=== PATIENT | female | born 1995 | race Asian ===

== ENCOUNTER 2017-10-14 15:32 | Emergency (ER) | payer OTHER ==
[2017-10-14 15:37] VITALS: BP 119/61
--- NOTE | 2017-10-14 16:34 | ER Document Report ---
HPI - HPI Pain Level: 0 Notes: Patient is a 21-year-old female with a history of eczema who presents ED complaining of an intermittent rash on her anterior forearms bilaterally that exacerbates when she is at work cutting on newer vegetables that they got in. Patient states that when she leaves work her symptoms improve. Patient has an occasional burning/itch to the area that is not worse at nighttime. Patient has not tried any [id number] meds for symptoms. Patient does wear gloves but they do not extend proximally from the wrist where she is coming into contact with those chemicals. Patient otherwise has not had any other recent illness. She denies any drug allergies. Denies any new foods, medicines, travel, or insect bites otherwise. Denies any headache, fever, neck pain, URI, sore throat, chest pain, palpitations, syncope, cough, shortness of breath, wheeze, dyspnea, abdominal pain, nausea/vomiting/diarrhea, urinary retention, dysuria, hematuria, numbness/tingling. - ROS Systems Reviewed and Negative: Yes All other systems reviewed and negative - REPRODUCTIVE Reproductive: DENIES: : Past Medical History - Social History Smoking Status: Never Smoker Family History: Reviewed & Not Pertinent Pulmonary Medical History: Reports: Hx Asthma Past Surgical History: Reports: Hx Tonsillectomy Vertical Provider Document - CONSTITUTIONAL Agree With Documented VS: Yes Notes: PHYSICAL EXAMINATION: GENERAL: Well-appearing, well-nourished and in no acute distress. EYES: sclera anicteric, conjunctiva are normal. ENT: ENares patent and without discharge. oropharynx clear without exudates. No tonsilar hypertrophy or erythema. Moist mucous membranes. NECK: Normal range of motion, supple without lymphadenopathy LUNGS: Breath sounds clear to auscultation bilaterally and equal. No wheezes rales or rhonchi. HEART: Regular rate and rhythm without murmurs, rubs, gallops. Musculoskeletal: UE's b/l: FROM to passive/active. Strength 5+/5. No deficits. N/V intact distal b/l. Extremities: No cyanosis, clubbing, or edema b/l. Peripheral pulses 2+. Capillary refill less than 3 seconds. NEUROLOGICAL: Normal speech, normal gait. Normal sensory, motor exams PSYCH: Normal mood, normal affect. SKIN: dry scaly maculopapular small areas on the anterior distal forearms. No scabbing, abscess, purulence, or streaks. Non-tender. - INFECTION CONTROL TRAVEL OUTSIDE OF THE [place] IN LAST 30 DAYS: No - RESPIRATORY O2 Sat by Pulse Oximetry: 100 Course - Re-evaluation Re-evalutation: 10/14/17 16:37 Patient is an afebrile, well-hydrated, 21-year-old female who presents the ED with a suspected contact dermatitis. Vitals are stable. PE is otherwise unremarkable. No other labs or imaging warranted at this time. Low suspicion for any necrotizing fasciitis, sepsis, scabies, SJS, or other systemic emergent condition at this time. Patient to monitor symptoms closely and seek medical attention with any acute changes. I will send her home with a prescription for triamcinolone cream to use as directed. Recheck with your PCM in 3-5 days. Consider consult with dermatology. Return to the ED with any worsening/ concerning symptoms otherwise as reviewed discharge. Patient is in agreement. - Vital Signs Vital signs: Temp Pulse Resp BP Pulse Ox 97.6 F 78 16 119/61 100 10/14/17 15:37 10/14/17 15:37 10/14/17 15:37 10/14/17 15:37 10/14/17 15:37 Discharge - Discharge Clinical Impression: Dermatitis Condition: Stable Disposition: HOME, SELF-CARE Instructions: Topical Steroid Cream or Ointment ([facility]) Additional Instructions: Keep the skin clean Wash with soap and water Limit exposure to the trigger Tylenol/ibuprofen if needed Triple antibiotic ointment daily if any break in the skin Take medication as directed Monitor for any worsening symptoms Recheck with your PCM in 3-5 days Consider consult with Dermatology for ongoing/worsening symptoms Return to the ED with any worsening symptoms and/or development of fever, headache, chest pain, palpitations, syncope, shortness of breath, trouble breathing, abdominal pain, n/v/d, abscess, purulent discharge, red streaks, worsening swelling, or other worsening symptoms that are concerning to you. Prescriptions: Triamcinolone Acetonide [Aristocort 0.5% Cream 15 gm] 1 applic TP BID #1 tube Referrals: SARAH RODRIGUEZ DO [ACTIVE STAFF] - Follow up as needed
== END 2017-10-14 16:50 | disposition home or self-care (01) ==
LOC: ER 15:32
DX: L30.9 Dermatitis, unspecified (principal)
CPT/HCPCS: 99282